=== PATIENT | female | born 1955 | race Caucasian/White ===

== ENCOUNTER 2020-10-07 16:17 | Observation (INO) ==
[2020-10-07] MEDS ORDERED: *HR* HYDROmorphone (PF) 1 MG/ML SYRINGE IVP ONE (16:50)
[2020-10-07] MEDS ORDERED: Ketorolac 15 MG/ML VIAL IVP ONE (16:51)
[2020-10-07 17:29] LABS: INR 0.9; Prothrombin Time 10.7 Seconds (9.4-12.1)
[2020-10-07 17:47] LABS: Alanine Aminotransferase 16 Units/L (7-52); Albumin 4.1 g/dL (3.5-5.7); Albumin/Globulin Ratio 1.6 (1.1-2.2); Alkaline Phosphatase 67 Units/L (34-104); Aspartate Amino Transferase 17 Units/L (13-39); BUN/Creatinine Ratio 20 (6-26); Bilirubin,Total 0.4 mg/dL (0.3-1.0); Blood Urea Nitrogen 17 mg/dL (8-23); Calcium 8.9 mg/dL (8.6-10.3); Carbon Dioxide 26 mEq/L (23-29); Chloride 107 mEq/L (98-107); Globulin 2.5 g/dL (2.4-3.5); Glucose 112 mg/dL (70-105); Osmolality,Calculated 294 (280-300); Potassium 4.3 mEq/L (3.5-5.1); Sodium 141 mEq/L (136-145); Total Protein 6.6 g/dL (6.4-8.9); eGFR For African Americans > 60 (> 60); eGFR For Non-African Americans > 60 (> 60)
[2020-10-07] MEDS ORDERED: Naloxone 0.4 MG/ML INJ IVP PRN (18:03)
[2020-10-07] MEDS ORDERED: Acetaminophen 325 MG TABLET PO PRN (18:03)
[2020-10-07] MEDS ORDERED: Ondansetron 4 MG/2 ML VIAL IVP PRN (18:03)
[2020-10-07] MEDS ORDERED: *HR* HYDROmorphone (PF) 1 MG/ML SYRINGE IVP PRN (18:05)
[2020-10-07 18:06] LABS: Basophils % 0.3 %; Eosinophils # 0.1 K/mcL (0.0-0.6); Eosinophils % 0.9 %; Hematocrit 43.2 % (35.3-44.9); Hemoglobin 13.9 g/dL (11.5-15.4); Immature Granulocytes % 0.5 % (0-4); Lymphocytes # 1.7 K/mcL (0.6-4.6); Lymphocytes % 16.8 %; Mean Corpuscular HGB Conc 32.2 g/dL (31.6-35.5); Mean Corpuscular Hemoglobin 29.9 pg (28.0-33.3); Mean Corpuscular Volume 92.9 fL (83.0-100.0); Mean Platelet Volume 11.4 fL (9.4-12.4); Monocytes # 0.4 K/mcL (0.0-1.3); Monocytes % 4.1 %; Platelet Count 249 K/mcL (140-400); Red Blood Count 4.65 M/mcL (3.82-4.97); Segmented Neutrophils % 77.4 %; White Blood Count 10.4 K/mcL (4.3-11.1)
[2020-10-07] MEDS: *HR* HYDROmorphone (PF) 1 MG/ML SYRINGE IVP PRN (20:26)
[2020-10-07] MEDS: Ketorolac 15 MG/ML VIAL IVP PRN (23:06)
[2020-10-08] MEDS: *HR* HYDROmorphone (PF) 1 MG/ML SYRINGE IVP PRN ×3 (00:49→08:52)
[2020-10-08 05:05] LABS: Basophils % 0.5 %; Eosinophils # 0.2 K/mcL (0.0-0.6); Eosinophils % 2.8 %; Hematocrit 41.9 % (35.3-44.9); Hemoglobin 12.9 g/dL (11.5-15.4); Immature Granulocytes % 0.3 % (0-4); Lymphocytes # 2.2 K/mcL (0.6-4.6); Lymphocytes % 34.2 %; Mean Corpuscular HGB Conc 30.8 g/dL (31.6-35.5); Mean Corpuscular Hemoglobin 29.6 pg (28.0-33.3); Mean Corpuscular Volume 96.1 fL (83.0-100.0); Mean Platelet Volume 11.4 fL (9.4-12.4); Monocytes # 0.4 K/mcL (0.0-1.3); Monocytes % 6.1 %; Neutrophils # 3.6 K/mcL (1.6-8.9); Platelet Count 216 K/mcL (140-400); Red Blood Count 4.36 M/mcL (3.82-4.97); Red Cell Distribution Width 12.2 % (11.5-14.5); Segmented Neutrophils % 56.1 %; White Blood Count 6.4 K/mcL (4.3-11.1)
[2020-10-08 05:23] LABS: BUN/Creatinine Ratio 27 (6-26); Blood Urea Nitrogen 20 mg/dL (8-23); Calcium 8.5 mg/dL (8.6-10.3); Carbon Dioxide 30 mEq/L (23-29); Chloride 107 mEq/L (98-107); Glucose 102 mg/dL (70-105); Magnesium 2.1 mg/dL (1.6-2.6); Osmolality,Calculated 299 (280-300); Potassium 4.2 mEq/L (3.5-5.1); Sodium 143 mEq/L (136-145); eGFR For African Americans > 60 (> 60); eGFR For Non-African Americans > 60 (> 60)
[2020-10-08] MEDS: *HR* Heparin 5,000 UNIT/ML VIAL SQ SCH ×2 (05:51→19:08)
[2020-10-08] MEDS ORDERED: Thyroid (Amour) 30 MG TABLET PO SCH (10:00)
[2020-10-08] MEDS: Ketorolac 15 MG/ML VIAL IVP PRN (10:39)
[2020-10-08] MEDS: *HR* HYDROmorphone PF 0.5 MG/0.5 ML SYRINGE IVP PRN ×2 (12:12→15:07)
[2020-10-08] MEDS ORDERED: Morphine Sulfate 2 MG/ML SYRINGE IVP ONE (14:53)
[2020-10-08] MEDS ORDERED: Ondansetron 4 MG/2 ML VIAL IVP ONE (14:55)
[2020-10-08] MEDS ORDERED: *HR* HYDROmorphone PF 0.5 MG/0.5 ML SYRINGE IVP PRN (16:50)
[2020-10-08] MEDS ORDERED: Lidocaine/EPI 1:200k 1% PF 10 ML VIAL ONE (17:16)
[2020-10-08] MEDS ORDERED: *HR* Midazolam HCl 2 MG/2 ML VIAL ONE (18:14)
[2020-10-08] MEDS ORDERED: Ondansetron 4 MG/2 ML VIAL ONE (18:14)
[2020-10-08] MEDS ORDERED: Lidocaine -MPF 2% 2 ML VIAL ONE (18:14)
[2020-10-08] MEDS ORDERED: *HR* FentaNYL (PF) 100 MCG/2 ML VIAL ONE (18:14)
[2020-10-08] MEDS ORDERED: *HR* Propofol 200 MG/20 ML VIAL IVP ONE (18:15)
[2020-10-08] MEDS ORDERED: tiZANidine 4 MG TABLET PO SCH (21:00)
[2020-10-09] MEDS: *HR* Heparin 5,000 UNIT/ML VIAL SQ SCH (05:22)
[2020-10-09] MEDS ORDERED: ceFAZolin 2,000 MG in 0.9 % Sodium Chloride 100 ML IVPB SCH (07:06)
[2020-10-09] MEDS ORDERED: Ondansetron 4 MG/2 ML VIAL IVP PRN (07:06)
[2020-10-09] MEDS ORDERED: *HR* HYDROmorphone PF 0.5 MG/0.5 ML SYRINGE IVP PRN (07:06)
[2020-10-09] MEDS ORDERED: Acetaminophen 325 MG TABLET PO PRN (07:06)
[2020-10-09] MEDS ORDERED: Ketorolac 15 MG/ML VIAL IVP PRN (07:06)
[2020-10-09] MEDS ORDERED: Naloxone 0.4 MG/ML INJ IVP PRN (07:06)
[2020-10-09] MEDS ORDERED: Thyroid (Amour) 30 MG TABLET PO SCH (07:06)
[2020-10-09] MEDS: ceFAZolin 2,000 MG in 0.9 % Sodium Chloride 100 ML IVPB SCH ×2 (09:18→14:02)
[2020-10-09 12:53] VITALS: BP 132/80
[2020-10-09] MEDS ORDERED: *HR* Heparin 5,000 UNIT/ML VIAL SQ SCH (18:00)
[2020-10-09] MEDS ORDERED: tiZANidine 4 MG TABLET PO SCH (21:00)
[2020-10-11] MEDS ORDERED: Thyroid (Amour) 30 MG TABLET PO SCH ×2 (10:00)
== END 2020-10-09 14:46 | disposition home or self-care (01) ==
LOC: 3NENU 16:17 → EMEROOARM 16:17 → SUATTDRO 18:09 → 3NENU 18:43
PROVIDERS: ADMIT Internal Medicine; ATTEND Internal Medicine